=== PATIENT | male | born 1940 | race Caucasian/White ===

== ENCOUNTER 2017-10-21 11:45 | Day surgery (SDC) | payer MEDICARE, OTHER ==
[~2017-10-21 11:45] MED LIST: ACETAMINOPHEN WITH CODEINE 1 EACH TABLET PO PRN; NORMAL SALINE 1,000 ML IV PRN; ONDANSETRON HCL/PF 2 MG/ML VIAL IV PRN; OXYBUTYNIN CHLORIDE 5 MG TABLET PO PRN; ceFAZolin SODIUM 1 GM VIAL IV PRN
[2017-10-21] MEDS ORDERED: RINGER'S SOLUTION,LACTATED 1,000 ML IV ONE (12:40)
[2017-10-21] MEDS ORDERED: ACETAMINOPHEN WITH CODEINE 1 EACH TABLET PO PRN (14:31)
[2017-10-21] MEDS ORDERED: ONDANSETRON HCL/PF 2 MG/ML VIAL IV PRN (14:32)
[2017-10-21] MEDS ORDERED: OXYBUTYNIN CHLORIDE 5 MG TABLET PO PRN (14:33)
[2017-10-21] MEDS ORDERED: OPIUM/BELLADONNA ALKALOIDS 1 SUPP SUPP RC PRN (15:25)
[2017-10-21 16:35] VITALS: BP 148/72
== END 2017-10-21 11:46 | disposition home or self-care (01) ==
LOC: AMB 11:45
PROVIDERS: ATTEND Urology
PROC: 0VB08ZX Excision of Prostate, Via Natural or Artificial Opening Endoscopic, Diagnostic (ICD-10-PCS; principal; 2017-10-21)
DX: N42.0 Calculus of prostate (principal); N40.1 Benign prostatic hyperplasia with lower urinary tract symptoms; N39.498 Other specified urinary incontinence; N32.3 Diverticulum of bladder; E66.9 Obesity, unspecified; Z85.46 Personal history of malignant neoplasm of prostate; Z68.28 Body mass index [BMI] 28.0-28.9, adult; Z87.440 Personal history of urinary (tract) infections; Z87.891 Personal history of nicotine dependence